=== PATIENT | male | born 1965 | race Caucasian/White ===

== ENCOUNTER 2020-11-02 08:00 | Outpatient (CLI) | payer OTHER ==
--- NOTE | 2020-11-02 17:49 | XRAY Report ---
PROCEDURE: Elbow 3 View RT INDICATIONS: RIGHT ELBOW JOINT PAIN. Consider failure right radial head prosthesis, placed in 1993. Sudden pain and range of motion limitation today. TECHNIQUE: 3 views of the elbow were acquired. COMPARISON: None FINDINGS: Bones: There is a dislocated radial head prosthesis. No suspicious bony lesions. Soft tissues: There is a moderate elbow joint effusion. No suspicious soft tissue calcifications. IMPRESSION: Dislocated radial head prosthesis, with a moderate joint effusion. Reviewed by: Homero Rogers MD on 11/02/2020 4:48 PM [facility]DT Approved by: Homero Rogers MD on 11/02/2020 4:48 PM AKDT Station ID: [id number]
== END 2020-11-02 23:59 | disposition home or self-care (01) ==
LOC: DI.S 08:00
PROVIDERS: ATTEND Physician Assistant
DX: T84.028A Dislocation of other internal joint prosthesis, initial encounter (principal)